=== PATIENT | female | born 1975 | race Two or more races ===

== ENCOUNTER → 2022-06-02 | Outpatient (CLI) | payer OTHER | LOC: M PAIN 08:45 | PROVIDERS: ATTEND Nurse Practitioner Family | DX: M51.16 Intervertebral disc disorders with radiculopathy, lumbar region (principal); G89.29 Other chronic pain; J45.909 Unspecified asthma, uncomplicated; G47.30 Sleep apnea, unspecified; R73.03 Prediabetes; Z86.59 Personal history of other mental and behavioral disorders; Z88.6 Allergy status to analgesic agent; Z91.013 Allergy to seafood; E66.01 Morbid (severe) obesity due to excess calories; Z68.45 Body mass index [BMI] 70 or greater, adult; Z79.51 Long term (current) use of inhaled steroids; Z79.899 Other long term (current) drug therapy ==

== ENCOUNTER 2023-03-20 00:10 | Emergency (ER) | payer OTHER, SELFPAY ==
[~2023-03-20] VITALS: Ht 149.9 cm; Wt 92.1 kg
[2023-03-20] MEDS ORDERED: ALBU8.5H (00:23)
[2023-03-20] MEDS ORDERED: STIO1AER (00:23)
[2023-03-20] MEDS ORDERED: IPRATROPIUM 0.02% SOLN 0.5MG 2.5ML NEB INH ONE (02:40)
[2023-03-20] MEDS ORDERED: ALBUTEROL SULFATE 2.5MG/0.5ML INH NEB SOLN INH ONE (02:40)
[2023-03-20] MEDS ORDERED: methylPREDNISolone 125MG 2ML VIAL IV ONE (02:40)
[2023-03-20 03:00] VITALS: TEMP 98
[2023-03-20 04:00] VITALS: BP 151/87; O2SAT 97
[2023-03-20] MEDS ORDERED: PRED20TA PO (04:02)
== END 2023-03-20 04:14 | disposition home or self-care (01) ==
LOC: M ED 00:10
DX: J45.901 Unspecified asthma with (acute) exacerbation (principal); I10 Essential (primary) hypertension; Z88.6 Allergy status to analgesic agent; Z79.51 Long term (current) use of inhaled steroids; Z79.899 Other long term (current) drug therapy
CPT/HCPCS: 71045; 87486; 87581; 87633; 87798; 94640; 96374; 99284; J2930

== ENCOUNTER 2023-04-11 00:30 | Emergency (ER) | payer MEDICAID, SELFPAY ==
[~2023-04-11] VITALS: Ht 149.9 cm; Wt 94.1 kg
[~2023-04-11 00:30] MED LIST: ALBU8.5H; PRED20TA PO; STIO1AER
[2023-04-11] MEDS ORDERED: ALBUTEROL SULFATE 2.5MG/0.5ML INH NEB SOLN NEB ONE (03:00)
[2023-04-11 03:04] VITALS: BP 142/76; TEMP 98.7; O2SAT 97
[2023-04-11] MEDS ORDERED: IPRATROPIUM 0.5MG/ALBUTEROL 2.5MG INH SOL UD 3ML (DUONEB) NEB ONE (03:10)
[2023-04-11] MEDS ORDERED: PRED20TA PO (04:04)
[2023-04-11] MEDS ORDERED: predniSONE 20 MG TAB PO ONE (04:05)
== END 2023-04-11 04:18 | disposition home or self-care (01) ==
LOC: M ED 00:30
DX: J45.901 Unspecified asthma with (acute) exacerbation (principal); Z11.52 Encounter for screening for COVID-19; Z88.6 Allergy status to analgesic agent; Z79.51 Long term (current) use of inhaled steroids
CPT/HCPCS: 87486; 87581; 87633; 87798; 94640; 99283; J7512

== ENCOUNTER 2023-04-25 01:16 | Emergency (ER) | payer MEDICAID, SELFPAY ==
[~2023-04-25] VITALS: Ht 149.9 cm; Wt 92.6 kg
[2023-04-25] MEDS ORDERED: IPRATROPIUM 0.02% SOLN 0.5MG 2.5ML NEB INH ONE (05:30)
[2023-04-25] MEDS ORDERED: dexAMETHasone 20MG/5ML VIAL IM ONE (05:30)
[2023-04-25] MEDS ORDERED: BUDESONIDE 0.25 MG/2 ML INHALATION SUSPENSION INH ONE (05:30)
[2023-04-25] MEDS ORDERED: ALBUTEROL SULFATE 2.5MG/0.5ML INH NEB SOLN INH ONE (05:30)
[2023-04-25] MEDS ORDERED: PRED20TA PO (07:14)
[2023-04-25 07:23] VITALS: BP 138/75; TEMP 97.2; O2SAT 96
== END 2023-04-25 07:25 | disposition home or self-care (01) ==
LOC: M ED 01:16
DX: J45.901 Unspecified asthma with (acute) exacerbation (principal); Z88.8 Allergy status to other drugs, medicaments and biological substances; Z79.51 Long term (current) use of inhaled steroids; Z79.899 Other long term (current) drug therapy
CPT/HCPCS: 71045; 94640; 96372; 99284; J1100